=== PATIENT | female | born 1950 | race Caucasian/White ===

== ENCOUNTER 2016-08-31 12:10 | Emergency (ER) | payer OTHER ==
[~2016-08-31] VITALS: Ht 157.5 cm; Wt 81.6 kg
[~2016-08-31 12:10] MED LIST: BACTRIM DS TAB1 EACH PO; KEFLEX500 M1 PO; KEFLEX500 MG PO; VIBRAMYCIN100 MG PO
--- NOTE | 2016-08-31 13:44 | ED NECK/BACK PAIN COMPLAINT ---
History of Present Illness General Chief Complaint: Lower Extremity Problems Stated Complaint: R KNEE PAIN Source: patient Exam Limitations: no limitations Vital Signs & Intake/Output Vital Signs & Intake/Output Vital Signs Date Time Temp Pulse Resp B/P Pulse O2 O2 Flow FiO2 Ox Delivery Rate 08/31 1528 97.1 62 20 157/81 96 Room Air 08/31 1450 Room Air Room Air 08/31 1213 97.2 63 18 129/77 98 Room Air ED Intake and Output 09/01 0000 08/31 1200 Intake Total 0 Output Total Balance 0 Intake, Oral 0 Patient 180 lb Weight Allergies Coded Allergies: naproxen (From NAPROSYN) (Intermediate, GI DISTRESS 08/31/16) levofloxacin (Mild, GI DISTRESS 08/31/16) phenazopyridine (Mild, GI DISTRESS 08/31/16) Penicillins (UNKNOWN 08/31/16) Sulfa (Sulfonamide Antibiotics) (SWELLING/ITCHY 08/31/16) latex (DRY SKIN 08/31/16) azithromycin (Intermediate, GI DISTRESS 08/31/16) ibuprofen (MAKES MOUTH DRY 08/31/16) Reconcile Medications Cephalexin (Keflex) 500 MG CAP 1 TAB PO 4 TIMES/DAY INFECTION Doxycycline Hyclate (Vibramycin) 100 MG CAPSULE 1 CAP PO BID cellulitis Ibuprofen 600 MG TABLET 1 TAB PO TID pain with food Nitrofurantoin Monohyd/M-Cryst (Macrobid 100 MG Capsule) 100 MG CAPSULE 1 CAP PO BID uti with food Tramadol HCl 50 MG TABLET 1-2 TAB PO Q6P PRN pain Triage Note: 66 Y/O FEMALE BIBA (TO TRIAGE) C/O R SIDED LOW BACK PAIN RADIATING INTO R BUTTOCKS AND R LEG; ONSET WEDNESDAY AND CONSTANT SINCE. STATES SHE HAS BEEN USING HEAT WITH SOME RELIEF. 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 DENIES FALLS OR TRAUMA Triage Nurses Notes Reviewed? yes Onset: Abrupt Duration: day(s): (6), constant, continues in ED Timing: recent history Quality/Severity: moderate, severe Location: lumbar spine Method of Injury: unknown Loss of Consciousness: no loss of consciousness HPI: 66-year-old female comes into emergency room for further evaluation low back pain. Patient reports the symptoms of been going on for the past 6 days. Patient reports that she has associated pain that radiates up into her right leg and down her leg and into her groin. She denies any abdominal pain or urinary symptoms. Denies any fever chills vomiting chest pain shortness of breath. Range of motion seems to make the symptoms worse. She denies any recent falls or trauma. (WALLY DEAN) Past History Travel History Traveled to [place] past 21 day No Medical History Any Pertinent Medical History? see below for history Neurological: NONE EENT: NONE Cardiovascular: NONE Respiratory: NONE Gastrointestinal: diverticulitis, GERD Hepatic: NONE Renal: NONE Musculoskeletal: NONE Psychiatric: NONE Endocrine: NONE Blood Disorders: NONE Cancer(s): NONE CENTER HOLE REAMER/Reproductive: NONE History of MRSA: No History of VRE: No History of CDIFF: No Surgical History Surgical History: OVARIAN CYST REMOVAL Psychosocial History Who do you live with Family Services at Home None What is your primary language Liberian Tobacco Use: Never used Family History Family History, If Any: FATHER FH: CAD (coronary artery disease) Relation not specified for: FH: HTN (hypertension) Hx Contributory? No (WALLY DEAN) Review of Systems Review of Systems Constitutional: Reports: no symptoms. Eyes: Reports: no symptoms. Ears, Nose, Throat, Mouth: Reports: no symptoms. Respiratory: Reports: no symptoms. Cardiovascular: Reports: no symptoms. Gastrointestinal/Abdominal: Reports: no symptoms. Musculoskeletal: Reports: see HPI. Skin: Reports: no symptoms. Neurological/Psychological: Reports: no symptoms. All Other Systems: Reviewed and Negative (WALLY DEAN) Physical Exam Physical Exam General Appearance: well developed/nourished, mild distress Head: atraumatic Eyes: Bilateral: normal appearance, EOMI. Ears, Nose, Throat, Mouth: hearing grossly normal, moist mucous membrane Neck: normal inspection, full range of motion Respiratory: normal breath sounds, no respiratory distress Cardiovascular: regular rate/rhythm Back: normal inspection, right paraspinal tenderness Extremities: normal range of motion Motor: Deficit L4 Right: No Deficit L4 Left: No Deficit L5 Right: No Deficit L5 Left: No Deficit S1 Right: No Deficit S1 Right: No Neurologic/Psych: awake, alert, oriented x 3, normal mood/affect Skin: intact, normal color, warm/dry (WALLY DEAN) Progress Differential Diagnosis: C spine injury, cauda equina syn, herniated disc, myofascial strain, pyelo/UTI, sciatica, spinal cord inj, thoracic outlet syn, ureterolithiasis Plan of Care: Orders Procedure Date/time Status Add-on Test (ER Only) 08/31 1448 Active CULTURE,URINE 09/01 1343 Active URINALYSIS 09/01 1343 Complete Laboratory Tests 08/31/16 1355: Urine Color YEL, Urine Clarity HAZY H, Urine pH 6.0, Ur Specific [place] 1.015, Urine Protein NEG, Urine Ketones NEG, Urine Nitrite NEG, Urine Bilirubin NEG, Urine Urobilinogen 0.2, Ur Leukocyte Esterase MOD H, Ur Microscopic SEDIMENT EXAMINED, Urine WBC 25-50 H, Ur Epithelial Cells MANY H, Urine Bacteria MOD H , Urine Hemoglobin TRACE-LYSED, Urine Glucose NEG Microbiology 09/01 1343 URINE ROUT: Urine Culture - RECD Diagnostic Imaging: Viewed by Me: Radiology Read. Discussed w/RAD: Radiology Read. Radiology Impression: SERVICE DATE: 08/31/16-1343 EXAM TYPE: RAD - XRY- LUMBOSACRAL SPINE 4 VIEWS EXAMINATION: XR LUMBOSACRAL SPINE CLINICAL INFORMATION : Lower back pain COMPARISON: 06/01/2012 TECHNIQUE: 4 views of the lumbosacral spine were obtained. FINDINGS: No acute fracture or subluxation. Vertebral bodies and posterior elements are anatomically aligned. Vertebral body heights are maintained. Mild disc space narrowing at L4-L5 and L5-S1. Small multilevel endplate osteophytes. The sacroiliac joints are intact. The sacrum is intact. The bowel gas pattern is unremarkable. IMPRESSION: Mild degenerative changes of the lumbar spine. These have slightly progressed from the prior study. DICTATED BY: REBECCA NAVARRETE,BLAINE DATE/TIME DICTATED:08/31/161434 PSYCHIATRIC ASSISTANT: LISSETH DATE/TIME TRANSCRIBED:08/31/161434 (WALLY DEAN) Departure Departure Disposition: HOME OR SELF CARE Condition: Stable Clinical Impression Primary Impression: UTI (urinary tract infection) Secondary Impressions: Low back pain Referrals: SRINIVASAN NAVARRETE,JO Booth (PCP/Family) Additional Instructions: Take Macrobid, tramadol, and ibuprofen as prescribed. Follow-up with your primary care doctor. Return if any concerns worsening symptoms. Please go over all results of today's visit with your primary care doctor. Contact your primary care doctor to let them know you were here in the emergency room. There may be nonspecific findings which may not be related to your visit today here in the emergency room but may require further evaluation and chronic monitoring by your primary care doctor. If you had a laceration today the chance of foreign body always remains. You should follow-up with your primary care doctor for recheck in 3-5 days for a wound check. If you had an x-ray done there is a chance that a fracture could have been missed on initial read and you should follow-up with your primary care doctor for repeat x-rays if symptoms persist. If your blood pressure was elevated here in the emergency room please have rechecked by her primary care doctor within the next 48 hours by your primary care doctor. If you were prescribed a narcotic here in the emergency room or any type of controlled substances you're not allowed to drive while taking this medication or operate any type of heavy machinery. Narcotics can make you feel lightheaded dizziness nausea and can cause constipation. You may need to moss picker a stool softener. Thank you for choosing [facility] emergency room. Please return to the emergency room immediately if you have any other concerns worsening of symptoms. Departure Forms: Customer Survey General Discharge Information Prescriptions: Current Visit Scripts Tramadol HCl 1-2 TAB PO Q6P PRN pain #15 TAB Ibuprofen 1 TAB PO TID #15 TAB with food Nitrofurantoin Monohyd/M-Cryst (Macrobid 100 MG Capsule) 1 CAP PO BID #14 CAP with food Comments 08/31/2016 7:12:25 PM Patient does not appear to be in any type of distress. She clinically looks well. Her back pain is more consistent with musculoskeletal versus a lumbar radiculopathy. Patient has a UTI based on UA but is asymptomatic. Patient treated in case of atypical UTI presentation. No concern for pyelonephritis. Afebrile. No vomiting. No abdominal pain. Patient felt better after the Toradol. Patient will follow up with her primary care doctor. Return if any other concerns. case discussed with dr eubanks. (WALLY DEAN) PA/PREDATORY ANIMAL TRAPPER Co-Sign Statement Statement: ED Attending supervision documentation- [] I saw and evaluated the patient. I have also reviewed all the pertinent lab results and diagnostic results. I agree with the findings and the plan of care as documented in the PA's/PREDATORY ANIMAL TRAPPER's documentation. [X] I have reviewed the ED Record and agree with the PA's/PREDATORY ANIMAL TRAPPER's documentation. [] Additions or exceptions (if any) to the PAs/PREDATORY ANIMAL TRAPPER's note and plan are summarized below: [] (SHEA NAVARRETE,GRACIE)
--- NOTE | 2016-08-31 14:40 | RADIOLOGY REPORT ---
EXAMINATION: XR LUMBOSACRAL SPINE CLINICAL INFORMATION: Lower back pain COMPARISON: 06/01/2012 TECHNIQUE: 4 views of the lumbosacral spine were obtained. FINDINGS: No acute fracture or subluxation. Vertebral bodies and posterior elements are anatomically aligned. Vertebral body heights are maintained. Mild disc space narrowing at L4-L5 and L5-S1. Small multilevel endplate osteophytes. The sacroiliac joints are intact. The sacrum is intact. The bowel gas pattern is unremarkable. IMPRESSION: Mild degenerative changes of the lumbar spine. These have slightly progressed from the prior study.
[2016-08-31] MEDS ORDERED: MACROBID 100 M100 MG PO (15:01)
[2016-08-31] MEDS ORDERED: TRAMADOL HCL50 M1 PO (15:01)
[2016-08-31] MEDS ORDERED: IBUPROFEN600 M1 PO (15:01)
[2016-08-31 15:28] VITALS: BP 157/81
== END 2016-08-31 15:29 ==
LOC: ERH 12:10
DX: N39.0 Urinary tract infection, site not specified (principal); M54.5 Low back pain
CPT/HCPCS: 72110; 81001; 87086; 96372; J1885